=== PATIENT | female | born 1960 | race American Indian/Alaskan Native ===

== ENCOUNTER 2016-10-31 18:59 | Emergency (ER) | payer BC, OTHER ==
--- NOTE | 2016-10-31 21:22 | Emergency Department Report ---
ED Female HPI - General Chief complaint: Tube Replacement Stated complaint: CATHETER FELL OUT Time Seen by Provider: 10/31/16 19:51 Source: patient, EMS Mode of arrival: Stretcher Limitations: No Limitations - History of Present Illness Initial comments: 56-year-old female with a past medical history of fibroids and suprapubic catheter presents to the hospital complains of suprapubic catheter dislodgment. Patient had a hysterectomy on October 12 with accidental nicking of the bladder requiring 20 persian suprapubic catheter. She was walking on a house and catheter fell out today. Patient denies any pain or fevers. Surgical procedures were performed at [place] - Related Data Allergies Allergy/AdvReac Type Severity Reaction Status Date / Time No Known Allergies Allergy Unverified 10/31/16 19:30 ED Review of Systems ROS: Stated complaint: CATHETER FELL OUT Other details as noted in HPI Comment: All other systems reviewed and negative Other: Constitutional: No fevers chills Eyes: No eye pain visual changes ENT: No ear pain or throat pain Neck: Denies pain Respiratory: Denies cough wheezing shortness of breath Cardiovascular: Denies chest pain, palpitations, syncope GI: Denies abdominal pain, nausea, vomiting, diarrhea :as per hpi Musculoskeletal: Denies back pain Skin: Denies rash, lesions, erythema Neurologic: Denies headache, numbness, weakness Psychiatric: Denies suicidal ideation, hallucinations ED Past Medical Hx - Past Medical History Additional medical history: fibroids - Surgical History Additional Surgical History: , R ACL repair, BL bunion removal - Social History Smoking Status: Never Smoker Substance Use Type: None ED Physical Exam - General Limitations: No Limitations - Other Other exam information: General: No limitations, patient is alert in no acute distress Head exam: Atraumatic, normocephalic Eyes exam: Normal appearance, pupils equal reactive to light, extraocular movements intact ENT: Moist mucous membrane, normal oropharynx Neck exam: Normal inspection, full range of motion Respiratory exam: Clear to auscultation bilateral, no wheezes, rales, crackles Cardiovascular: Normal rate and rhythm, normal heart sounds Abdomen: Soft, nondistended, and nontender, with normal bowel sounds, no rebound, or guarding : Suprapubic catheter site identified Extremity: Full range of motion normal inspection no deformity Back: Normal Inspection, full range of motion, no tenderness Neurologic: Alert, oriented x3, cranial nerves intact, no motor or sensory deficit Psychiatric: normal affect, normal mood Skin: Warm, dry, intact ED Course Vital Signs 10/31/16 19:26 Temperature 98.5 F Pulse Rate 90 Respiratory 18 Rate Blood Pressure 123/64 O2 Sat by Pulse 99 Oximetry - Consultations Consultation #1: 10/31/16 21:18 case d/w DR. Torres [facility]. I discussed the shape of the catheter the patient had previously. Dr. Torres states that the 20 [place] Handy catheter placed today in the ED should be sufficient - Procedure Description Procedures done: Suprapubic catheter insertion. Area prepped with Betadine and lubricated. Using sterile technique 20 Libyan catheter placed through the residual stoma with immediate return of urine in the Handy catheter. Balloon inflated with 20 mL of normal saline and secured to the leg. Patient tolerated procedure well. ED Medical Decision Making - Medical Decision Making Successful placement of suprapubic catheter in the ED with return of urine. Case discussed with urology. Patient will be discharged home and encouraged to follow-up with her urologist - Differential Diagnosis urinary retention, superpubic catheter dislodgment Critical Care Time: No Critical care attestation.: If time is entered above; I have spent that time in minutes in the direct care of this critically ill patient, excluding procedure time. ED Disposition Clinical Impression: Encounter for suprapubic catheter care Disposition: DISCHARGED TO HOME OR SELFCARE Is pt being admited?: No Does the pt Need Aspirin: No Condition: Stable Instructions: How to Care for Your Suprapubic Catheter (ED) Additional Instructions: Follow up with your urologist for further management of your supapubic catheter. Return if symptoms worsen. Referrals: your, urologist [Other] - 2-3 Days Time of Disposition: 21:28
[2016-10-31 22:01] VITALS: BP 132/72
== END 2016-10-31 22:02 | disposition home or self-care (01) ==
LOC: ED 18:59
DX: T83.028A Displacement of other urinary catheter, initial encounter (principal); Y84.6 Urinary catheterization as the cause of abnormal reaction of the patient, or of later complication, without mention of misadventure at the time of the procedure; Y92.89 Other specified places as the place of occurrence of the external cause
CPT/HCPCS: 51702

== ENCOUNTER 2017-06-15 16:25 | Emergency (ER) | payer OTHER ==
--- NOTE | 2017-06-15 19:20 | Emergency Department Report ---
Chief Complaint: Upper Respiratory Infection Stated Complaint: FLU LIKE SYMPTOMS Time Seen by Provider: 06/15/17 18:40 - HPI History of Present Illness: Patient is a 57-year-old female presenting with cough cold congestion for the last 3 days. Patient states she's had a mild sore throat cough occasional wheezing and some discomfort in her ribs. Patient states that she's had no nausea vomiting or diarrhea. There's been no body aches. Patient mostly is concerned with the cough. - ROS Review of Systems: Review of systems negative other than those elements in the HPI - Exam Vital Signs: Vital Signs 06/15/17 16:33 Temperature 97.9 F Pulse Rate 80 Respiratory 18 Rate Blood Pressure 187/110 O2 Sat by Pulse 98 Oximetry MSE screening note: Focused history and physical exam performed. Due to findings the following was ordered: ED Disposition for MSE Condition: Stable Referrals: BETTINA NICHOLS MD [Primary Care Provider] - 3-5 Days
--- NOTE | 2017-06-15 20:10 | XRay Report ---
FINAL REPORT PROCEDURE: Chest. TECHNIQUE: PA and lateral views. HISTORY: Cough. COMPARISON: No prior studies are available for comparison. FINDINGS: The heart and mediastinum appear normal. There is mild tortuosity of the thoracic aorta. The lungs are clear and well expanded. There are no pleural effusions. The soft tissues and regional skeleton are unremarkable. IMPRESSION: No evidence of acute disease.
--- NOTE | 2017-06-15 20:50 | Emergency Department Report ---
- General Chief Complaint: Upper Respiratory Infection Stated Complaint: FLU LIKE SYMPTOMS Time Seen by Provider: 06/15/17 18:40 Source: patient Mode of arrival: Ambulatory Limitations: No Limitations - History of Present Illness Initial Comments: This is a 57-year-old female nontoxic, well nourished in appearance, no acute signs of distress presents to the ED with c/o of productive cough, nasal congestion 3 days. Patient also stated she has mild sore throat with occasional wheezing. Patient in the ED denies any wheezing. Patient has been seen and examined by Dr. Trent. See Dr. Trent HPI notes. Patient denies any changes of HPI. Denies any recent travels, long care rides or recent hospital stays. Denies any chest pain, shortness of breath, fever, chills, nausea, vomiting, headache or stiff neck. Discussed that the cough is yellow mucus production. Denies any allergies. Past medical history includes asthma and GERD. MD Complaint: cough, sore throat, rhinorrhea, nasal congestion -: Gradual, days(s) (3) Severity: mild Severity scale (0 -10): 8 Quality: aching Consistency: constant Improves With: nothing Worsens With: nothing Associated Symptoms: rhinorrhea, nasal congestion, sore throat, cough. denies: fever, chills, myalgias, diaphoresis, headache, stiff neck, chest pain, shortness of breath, abdominal pain, nausea, vomiting, diarrhea, dysuria, rash, confusion, right sweats, weight loss, epistaxis, hoarseness, ear pain Treatments Prior to Arrival: none - Related Data Previous Rx's Medication Instructions Recorded Last Taken Type ALBUTEROL Inhaler [ProAir HFA 2 puff IH QID PRN #1 inhalation 06/15/17 Unknown Rx Inhaler] Azithromycin [Zithromax Z-GILES] 250 mg PO DAILY #6 tablet 06/15/17 Unknown Rx predniSONE [Deltasone] 40 mg PO QDAY #5 tab 06/15/17 Unknown Rx Allergies Allergy/AdvReac Type Severity Reaction Status Date / Time No Known Allergies Allergy Unverified 10/31/16 19:30 ED Review of Systems ROS: Stated complaint: FLU LIKE SYMPTOMS Other details as noted in HPI Constitutional: denies: chills, fever Eyes: denies: eye pain, eye discharge, vision change ENT: throat pain. denies: ear pain Respiratory: cough. denies: shortness of breath, wheezing Cardiovascular: denies: chest pain, palpitations Endocrine: no symptoms reported Gastrointestinal: denies: abdominal pain, nausea, diarrhea Genitourinary: denies: urgency, dysuria, discharge Musculoskeletal: denies: back pain, joint swelling, arthralgia Skin: denies: rash, lesions Neurological: denies: headache, weakness, paresthesias Psychiatric: denies: anxiety, depression Hematological/Lymphatic: denies: easy bleeding, easy bruising ED Past Medical Hx - Past Medical History Hx GERD: Yes Hx Asthma: Yes Additional medical history: fibroids - Surgical History Additional Surgical History: , R ACL repair, BL bunion removal - Social History Smoking Status: Never Smoker Substance Use Type: None - Medications Home Medications: Home Medications Medication Instructions Recorded Confirmed Last Taken Type ALBUTEROL Inhaler [ProAir HFA 2 puff IH QID PRN #1 inhalation 06/15/17 Unknown Rx Inhaler] Azithromycin [Zithromax Z-GILES] 250 mg PO DAILY #6 tablet 06/15/17 Unknown Rx predniSONE [Deltasone] 40 mg PO QDAY #5 tab 06/15/17 Unknown Rx ED Physical Exam - General Limitations: No Limitations General appearance: alert, in no apparent distress - Head Head exam: Present: atraumatic, normocephalic, normal inspection - Eye Eye exam: Present: normal appearance, PERRL, EOMI. Absent: scleral icterus, conjunctival injection, nystagmus, periorbital swelling, periorbital tenderness Pupils: Present: normal accommodation - ENT ENT exam: Present: mucous membranes moist, TM's normal bilaterally, normal external ear exam - Expanded ENT Exam Expanded Ear exam: Present: normal external inspection Mouth exam: Present: normal external inspection, tongue normal. Absent: drooling, trismus, muffled voice, tongue elevation, laceration Throat exam: Positive: tonsillar erythema, tonsillomegaly (2+). Negative: tonsillar exudate, R peritonsillar mass, L peritonsillar mass - Neck Neck exam: Present: normal inspection, full ROM. Absent: tenderness, meningismus, lymphadenopathy, thyromegaly - Respiratory Respiratory exam: Present: normal lung sounds bilaterally. Absent: respiratory distress, wheezes, rales, rhonchi, stridor, chest wall tenderness, accessory muscle use, decreased breath sounds, prolonged expiratory - Cardiovascular Cardiovascular Exam: Present: regular rate, normal rhythm. Absent: systolic murmur, diastolic murmur, rubs, gallop - GI/Abdominal GI/Abdominal exam: Present: soft, normal bowel sounds. Absent: distended, tenderness, guarding, rebound, rigid, diminished bowel sounds - Rectal Rectal exam: Present: deferred - Extremities Exam Extremities exam: Present: normal inspection, full ROM, normal capillary refill. Absent: tenderness, pedal edema, joint swelling, calf tenderness - Back Exam Back exam: Present: normal inspection, full ROM. Absent: tenderness, CVA tenderness (R), CVA tenderness (L), muscle spasm, paraspinal tenderness, vertebral tenderness, rash noted - Neurological Exam Neurological exam: Present: alert, oriented X3, CN II-XII intact, normal gait, reflexes normal - Psychiatric Psychiatric exam: Present: normal affect, normal mood - Skin Skin exam: Present: warm, dry, intact, normal color. Absent: rash ED Course Vital Signs 06/15/17 16:33 Temperature 97.9 F Pulse Rate 80 Respiratory 18 Rate Blood Pressure 187/110 O2 Sat by Pulse 98 Oximetry - Reevaluation(s) Reevaluation #1: 06/15/17 20:50 Patient is speaking in full sentences with no signs of distress noted. - Consultations Consultation #1: 06/15/17 20:50 Patient has been consulted with about patient histroy, physical exam, and labs and examined and screened and agrees distress plan for care. ED Medical Decision Making - Medical Decision Making This 7-year-old female presents with upper respiratory infection and tonsillitis. Patient is stable and was examined by me and Dr. Trent. Patient is screened by Dr. Trent. See HPI MSE Dr. Sinha noted. As per patient, no physcial changes or HPI changes. Chest x-ray has been obtained and the radiologist with normal exam. Patient is discharged with azithromycin, prednisone, and albuterol. Patient was instructed Follow-up with a primary care doctor in 3-5 days or if symptoms worsen and continue return to emergency room as soon as possible. At time time of discharge, the patient does not seem toxic or ill in appearance. No acute signs of distress noted. Patient agrees to discharge treatment plan of care. No further questions noted by the patient. Patient was isntructed that she has high blood pressure in the ED which patient stated she is aware and is on diet for this. Patient was instructed to consult with pcp for possible medication if not within normal limits of BP. Critical care attestation.: If time is entered above; I have spent that time in minutes in the direct care of this critically ill patient, excluding procedure time. ED Disposition Clinical Impression: Tonsillitis Upper respiratory infection Qualifiers: URI type: unspecified URI Qualified Code(s): J06.9 - Acute upper respiratory infection, unspecified Hypertension Qualifiers: Hypertension type: unspecified Qualified Code(s): I10 - Essential (primary) hypertension Disposition: TO HOME OR SELFCARE Is pt being admited?: No Does the pt Need Aspirin: No Condition: Stable Instructions: Upper Respiratory Infection (ED), Tonsillitis (ED), Hypertension (ED) Additional Instructions: Follow-up with a primary care doctor in 3-5 days or if symptoms worsen and continue return to emergency room as soon as possible. As instructed and directed, you have high blood pressure in the ED, so you must follow-up with your primary care doctor and keep a daily log of blood pressure. Prescriptions: ALBUTEROL Inhaler [ProAir HFA Inhaler] 2 puff IH QID PRN #1 inhalation PRN Reason: Shortness Of Breath Azithromycin [Zithromax Z-GILES] 250 mg PO DAILY #6 tablet predniSONE [Deltasone] 40 mg PO QDAY #5 tab Referrals: BETTINA NICHOLS MD [Primary Care Provider] - 3-5 Days BREANNE SCHROEDER MD [Staff Physician] - 3-5 Days [facility] [Outside] - 3-5 Days [facility] [Outside] - 3-5 Days Forms: Work/School Release Form(ED)
[2017-06-15 21:02] VITALS: BP 156/90
== END 2017-06-15 21:11 | disposition home or self-care (01) ==
LOC: ED 16:25
DX: J03.90 Acute tonsillitis, unspecified (principal); J06.9 Acute upper respiratory infection, unspecified; I10 Essential (primary) hypertension; K21.9 Gastro-esophageal reflux disease without esophagitis; J45.909 Unspecified asthma, uncomplicated
CPT/HCPCS: 71020; 99283

== ENCOUNTER 2019-01-11 08:17 | Outpatient (CLI) | payer OTHER ==
--- NOTE | 2019-01-11 16:57 | Ultrasound Report ---
DIGITAL DIAGNOSTIC MAMMOGRAM WITH CAD 01/11/2019 Right BREAST ULTRASOUND INDICATION: Palpable lump right breast TECHNIQUE: Digital mammographic imaging was performed. This examination was interpreted with the alex efit of Computer-Aided Detection (CAD) analysis. COMPARISON: None FINDINGS: Breast Density: Heterogeneously dense breast tissue bilaterally There is no evidence of dominant mass, suspicious calcifications or architectural distortion in eithe r breast. In the area of palpable concern, marked with a skin marker, there is a benign-appearing den sity which has features consistent with a benign lymph node. This mammographic density most likely co rrelates with the benign-appearing lymph node in the area of palpable concern seen on ultrasound. Ultrasound Findings: Unilateral right breast ultrasound. Clinical History: Palpable lump right breast Procedure: Real-time ultrasound was utilized to evaluate. Findings: In the right breast, 13 cm from nipple, 10:00 o'clock position, correlating with the patien t's palpable abnormality, there is a solid mass measuring 6.6 x 6.1 x 6.6 mm. It has somewhat irregu lar borders and some vascularity associated with it.. There is an adjacent benign-appearing lymph nod e measuring 9 mm seen in the 10:00 position 13 cm from the nipple. IMPRESSION: BI-RADS category 4, suspicious. Ultrasound-guided biopsy of the 7 mm solid palpable nodule is recomme nded. A "normal" or negative report should not discourage follow up or biopsy of a clinically significant f inding. A written summary of these findings will be mailed to the patient. The patient will be entered into a mammography reporting system which will generate a reminder letter for the patient's next appointmen t at the appropriate interval. According to the [employer], yearly mammograms are recommended starting at age 40 and continuing as long as a woman is in good health. Breast MRI is recommended for women with an saira roximately 20-25% or greater lifetime risk of breast cancer, including women with a strong family his tory of breast or ovarian cancer and women who have been treated for Hodgkin's disease. Signer Name: Ranjana Mensah MD Signed: 01/11/2019 4:52 PM Workstation Name: [id number]
== END 2019-01-11 08:18 | disposition home or self-care (01) ==
LOC: MAMMO 08:17
PROVIDERS: ATTEND Internal Medicine
DX: N63.20 Unspecified lump in the left breast, unspecified quadrant (principal); J45.909 Unspecified asthma, uncomplicated; K21.9 Gastro-esophageal reflux disease without esophagitis; Z90.710 Acquired absence of both cervix and uterus
CPT/HCPCS: 77066

== ENCOUNTER 2019-01-22 11:58 | Outpatient (CLI) | payer OTHER ==
--- NOTE | 2019-01-22 14:16 | Mammography Report ---
RIGHT DIGITAL DIAGNOSTIC CLINICAL: For clip placement after ultrasound-guided needle biopsy. COMPARISON: 01/11/2019 FINDINGS: A biopsy clip is identified in the right axilla on the MLO view. The clip could not be imag ed on an exaggerated CC view. IMPRESSION: Satisfactory clip deployment. Signer Name: Mirza Brower MD Signed: 01/22/2019 2:12 PM Workstation Name: [id number]
--- NOTE | 2019-01-22 14:19 | Ultrasound Report ---
ULTRASOUND-GUIDED NEEDLE CORE BIOPSY Right BREAST WITH CLIP PLACEMENT CLINICAL: Right breast mass at 10:00 FINDINGS: The procedure was explained to the patient and informed consent was obtained. Ultrasound demonstrated the previously identified 1 cm mass versus lymph node at 10:00 14 cm from the nipple.. A marker breast with a felt tip marker and a timeout was called. The skin was prepped with Chloro-Pre p and anesthetized with 1% lidocaine. Needle core biopsy was performed through tiny dermatotomy using ultrasound guidance, 2% lidocaine wit h epinephrine for deep anesthesia and a 14-gauge Achieve biopsy device. 3 cores were obtained and maurilio jerry in formalin. A clip was deployed within the lesion. The patient tolerated the procedure well and there were no apparent convocations. Hemostasis was achi eved with minimal effort and a sterile dressing was applied. A post procedure mammogram demonstrated concordant clip deployment. She left the department in good c ondition and was given instructions for wound care and follow-up. IMPRESSION: Uncomplicated ultrasound guided needle core biopsy with clip placement right breast. Signer Name: Mirza Brower MD Signed: 01/22/2019 2:15 PM Workstation Name: [id number]
== END 2019-01-22 11:59 | disposition home or self-care (01) ==
LOC: SPVWC 11:58
DX: N63.11 Unspecified lump in the right breast, upper outer quadrant (principal); I89.8 Other specified noninfective disorders of lymphatic vessels and lymph nodes; J45.909 Unspecified asthma, uncomplicated; K21.9 Gastro-esophageal reflux disease without esophagitis; Z79.899 Other long term (current) drug therapy; Z90.710 Acquired absence of both cervix and uterus
CPT/HCPCS: 88305

== ENCOUNTER 2020-01-09 12:48 | Outpatient (CLI) | payer OTHER ==
--- NOTE | 2020-01-09 15:33 | Mammography Report ---
DIGITAL SCREENING MAMMOGRAM WITH CAD, 01/09/2020 INDICATION: Routine screening mammography. TECHNIQUE: Digital bilateral 2D mammography was obtained in the craniocaudal and mediolateral obliq ue projections. This examination was interpreted with the benefit of Computer-Aided Detection analysi s. COMPARISON: 01/11/2019. FINDINGS: Breast Density: The breasts are heterogeneously dense, which may obscure small masses. There is no evidence of dominant mass, suspicious calcifications or architectural distortion in eithe r breast. IMPRESSION: Follow up recommendation: Routine yearly BI-RADS Category 1: Negative. A "normal" or negative report should not discourage follow up or biopsy of a clinically significant f inding. A written summary of these findings will be mailed to the patient. The patient will be entered into a mammography reporting system which will generate a reminder letter for the patient's next appointmen t at the appropriate interval. The [employer] recommends yearly mammograms starting at age 40 and continuing as l shannan as a woman is in good health. Breast MRI is recommended for women with an approximate 20-25% or greater lifetime risk of breast cancer, including women with a strong family history of breast or ova jacobo cancer or who have been treated for Hodgkin's disease. Signer Name: Harsh Gamble MD Signed: 01/09/2020 3:29 PM Workstation Name: [id number]
== END 2020-01-09 12:49 | disposition home or self-care (01) ==
LOC: SPVWC 12:48
DX: Z12.31 Encounter for screening mammogram for malignant neoplasm of breast (principal)
CPT/HCPCS: 77067

== ENCOUNTER 2020-09-24 13:05 | Outpatient (CLI) | payer OTHER ==
--- NOTE | 2020-09-24 13:45 | Mammography Report ---
DIGITAL DIAGNOSTIC MAMMOGRAM WITH CAD CONVENTIONAL, 09/24/2020 CLINICAL INFORMATION / INDICATION: Patient presents for evaluation of diffuse left breast pain. BREAS T PAIN MASTODYNIA N64.4 TECHNIQUE: Digital left mammographic imaging was performed. This examination was interpreted with the benefit of Computer-aided Detection analysis. COMPARISON: Prior mammograms 01/09/2020 and 01/11/2019 FINDINGS: Breast Density: The breasts are heterogeneously dense, which may obscure small masses. No dominant mass, suspicious calcifications or architectural distortion in the left breast. There has been no significant change compared with the prior examinations. IMPRESSION: 1. No mammographic abnormality to account for diffuse left breast pain, therefore clinical correlatio n is recommended. Follow up recommendation: Back to schedule. BI-RADS Category 1: Negative. A "normal" or negative report should not discourage follow up or biopsy of a clinically significant f inding. A written summary of these findings will be mailed to the patient. The patient will be entered into a mammography reporting system which will generate a reminder letter for the patient's next appointmen t at the appropriate interval. According to the [employer], yearly mammograms are recommended starting at age 40 and continuing as long as a woman is in good health. Breast MRI is recommended for women with an saira roximately 20-25% or greater lifetime risk of breast cancer, including women with a strong family his tory of breast or ovarian cancer and women who have been treated for Hodgkin's disease. Signer Name: Herminia Coleman MD Signed: 09/24/2020 1:41 PM Workstation Name: [id number]
== END 2020-09-24 13:06 | disposition home or self-care (01) ==
LOC: SPVWC 13:05
DX: N64.4 Mastodynia (principal); R92.8 Other abnormal and inconclusive findings on diagnostic imaging of breast

== ENCOUNTER 2021-03-26 12:54 | Outpatient (CLI) | payer OTHER ==
--- NOTE | 2021-03-26 13:36 | Mammography Report ---
DIGITAL DIAGNOSTIC MAMMOGRAM WITH CAD, 03/26/2021 INDICATION: The patient reports generalized intermittent pain in the left breast for months to years. TECHNIQUE: Digital bilateral mammographic imaging was performed. This examination was interpreted with the benefit of Computer-aided Detection analysis. COMPARISON: Bilateral mammogram, 01/09/2020 and 01/11/2019 FINDINGS: Breast Density: The breasts are heterogeneously dense, which may obscure small masses. There is no evidence of dominant mass, suspicious calcifications or architectural distortion in eithe r breast. There is no focal abnormality to account for the patient's left breast pain. There has been no significant interval change. IMPRESSION: Follow up recommendation: Routine yearly. Clinical correlation is recommended for the patient's left breast pain. BI-RADS Category 1: Negative. A "normal" or negative report should not discourage follow up or biopsy of a clinically significant f inding. A written summary of these findings will be mailed to the patient. The patient will be entered into a mammography reporting system which will generate a reminder letter for the patient's next appointmen t at the appropriate interval. According to the [employer], yearly mammograms are recommended starting at age 40 and continuing as long as a woman is in good health. Breast MRI is recommended for women with an saira roximately 20-25% or greater lifetime risk of breast cancer, including women with a strong family his tory of breast or ovarian cancer and women who have been treated for Hodgkin's disease. Signer Name: Nya Valdez MD Signed: 03/26/2021 1:31 PM Workstation Name: [id number]
== END 2021-03-26 12:55 | disposition home or self-care (01) ==
LOC: SPVWC 12:54
PROVIDERS: ATTEND Internal Medicine Infectious Disease
DX: R92.8 Other abnormal and inconclusive findings on diagnostic imaging of breast (principal); N64.4 Mastodynia
CPT/HCPCS: 77066